=== PATIENT | male | born 1930 | race Caucasian/White ===

== ENCOUNTER 2018-01-28 08:23 | Emergency (ER) | payer OTHER ==
--- NOTE | 2018-01-28 09:01 | ED Physician Chart ---
ED Chief Complaint/HPI - Patient Information Date Seen:: 01/28/18 Time Seen:: 08:58 Chief Complaint:: psych disorder History of Present Illness:: this is an 87 yo male sent from the custodial for an evaluation and treatment of his behavior in the custodial. Allergies:: Allergies Allergy/AdvReac Type Severity Reaction Status Date / Time No Known Allergies Allergy Verified 01/28/18 08:42 Vitals:: Vital Signs - 8 hr 01/28/18 08:42 Temp 98.5 F HR 85 RR 18 BP 126/89 O2 Sat % 98 Historian:: Medical Records Review:: Nurse's Note Reviewed, Transfer documents Reviewed ED Review of Systems - Review of Systems General/Constitutional: Other (this patient is not cooperating to give a review of systems) ED Past Medical History - Past Medical History Obtainable: Yes Past Medical History: CAD, Dementia, Other (PNEUMONIA) Social History: Non Smoker, No Alcohol, No Drug Use, Care Facility, Other (BPH AND HEARING LOSS) Surgical History: Cholecystectomy, other (COLECTOMY, CATRACT SURGERY) Family Medical History - Family Member Mother History Unknown: Yes ED Physical Exam - Physical Examination Other Gen/Cons comments:: HARD OF HEARING VERY COMBATIVE AT TIMES Other ENMT comments:: BILATERAL HEARING LOSS. Other GI comments:: COLOSTOMY BAG, FUNCTION NORMALLY. Neuro/Psych: Mood normal (VERY AGGRESSIVE AND LOUD) ED Labs/Radiology/EKG Results - Lab Results Results: Abnormal Lab Results 01/28/18 01/28/18 09:21 09:21 WBC 5.7 RBC 4.64 Hgb 13.6 Hct 40.2 L MCV 86.6 MCH 29.2 MCHC Differential 33.7 RDW 13.4 Plt Count 227 MPV 7.4 Neutrophils % 76.5 Lymphocytes % 7.9 L Monocytes % 7.8 Eosinophils % 6.2 H Basophils % 1.6 Sodium 139 Potassium 4.1 Chloride 105 Carbon Dioxide 28.9 Anion Gap 9.2 BUN 15 Creatinine 1.2 Est GFR ( Amer) TNP Est GFR (Non-Af Amer) TNP BUN/Creatinine Ratio 12.5 Glucose 96 Calcium 9.4 Total Bilirubin 2.1 H AST 15 ALT 10 Alkaline Phosphatase 71 Total Protein 6.6 Albumin 3.8 L Globulin 2.8 Albumin/Globulin Ratio 1.4 - Radiology Results Results: CHEST X-RAY = NAD CT SCAN OF THE HEAD - EKG Interpretations EKG Time:: 09:23 Rate & Rhythm: RATE= 77, SINUS [place]: RIGHT AXIS Intervals: NO ECTOPY SEEN ED Assessment - Assessment General Assessment: psychosis ED Septic Shock - . Is Septic Shock (SBP<90, OR Lactate>4 mmol\L) present?: No - <6hrs of presentation: Vital Signs: Vital Signs - 8 hr 01/28/18 08:42 Temp 98.5 F HR 85 RR 18 BP 126/89 O2 Sat % 98 ED Reassessment (Disposition) - Diagnosis Diagnosis:: PSYCHOSIS - Patient Disposition Discharge/Transfer:: Acute Care (other hosp) ([facility]) Transport Method:: BLS Condition at Disposition:: Unchanged
[2018-01-28 09:27] LABS: HEMATOCRIT 40.2 % (41.0-60); HEMOGLOBIN 13.6 gm/dL (12-16); MEAN CELL VOLUME 86.6 fl (80-99); MEAN CORPUSCULAR HEMOGLOBIN 29.2 pg (27.0-31.0); MEAN CORPUSCULAR HGB CONC 33.7 pg (28.0-36.0); MEAN PLATELET VOLUME 7.4 fl; PLATELET COUNT 227 Th/cmm (150-400); RED BLOOD COUNT 4.64 Mil/cmm (3.80-5.80); RED CELL DISTRIBUTION WIDTH 13.4 % (11.5-20.0); WHITE BLOOD COUNT 5.7 Th/cmm (4.8-10.8)
--- NOTE | 2018-01-28 09:33 | Diagnostic Imaging Report ---
Exam: Chest x-ray HISTORY: Congestion. Findings: Frontal examination of chest upright reviewed the study demonstrates no acute pulmonic infiltrates or effusions. Mild atelectasis in the right base appreciated. COPD changes are noted. Mediastinal structures midline the heart is not enlarged. IMPRESSION: COPD changes. No acute disease.
[2018-01-28 09:44] LABS: ALB/GLOB RATIO 1.4 (1.0-1.8); ALBUMIN 3.8 gm/dL (4.2-5.5); ALKALINE PHOSPHATASE 71 U/L (34-104); ANION GAP 9.2 (7.0-16.0); BILIRUBIN,TOTAL 2.1 mg/dL (0.3-1.0); BUN - UREA NITROGEN 15 mg/dL (7-25); CALCIUM SERUM 9.4 mg/dL (8.6-10.3); CARBON DIOXIDE 28.9 mEq/L (21.0-31.0); CHLORIDE 105 mEq/L (98-107); CREATININE - SERUM 1.2 mg/dL (0.7-1.3); GLUCOSE 96 mg/dL (70-105); POTASSIUM SERUM 4.1 mEq/L (3.5-5.1); SGOT 15 U/L (13-39); SGPT/ALT 10 U/L (7-52); SODIUM SERUM 139 mEq/L (136-145); TOTAL PROTEIN,SERUM 6.6 gm/dL (6.0-8.3)
[2018-01-28 09:48] LABS: INR 0.95 (0.5-1.4); PROTHROMBIN TIME (TEST) 9.9 SECONDS (9.5-11.5)
--- NOTE | 2018-01-28 09:50 | Diagnostic Imaging Report ---
CT scan of the brain without intravenous contrast HISTORY: Stroke Total DLP equals 672 CTDI equals 36.1 Axial sections were obtained from the base of the skull to the vertex. There is prominence/enlargement of the ventricular system size. Associated enlargement of cerebral sulci and subarachnoid cisterns. Findings are consistent with changes of generalized cerebral atrophy. No acute parenchymal abnormalities. No acute cerebral hemorrhage. Chronic vascular calcifications appreciated. Hypodensity is seen within the supratentorial white matter regions without mass effect. The findings may be associated with chronic small vessel ischemic disease. There is a small lacunar infarct in right basal ganglia. There is evidence for a small infarct in the left frontal lobe No extra-axial masses or abnormal fluid collections. There is evidence for deviation of nasal septum. IMPRESSION: 1. Old lacunar infarct right basal ganglia, small lacunar infarct left frontal lobe 2. Cerebral atrophy 3. Supratentorial white matter changes that may reflect chronic small vessel ischemic disease
[2018-01-28 10:11] LABS: BAND NEUTROPHILE 2 % (0-10); LYMPHOCYTE 10 % (20-50); NEUTROPHILS 80 % (40-80)
[2018-01-28 10:12] LABS: EOSINOPHIL 3 % (0-5); MONOCYTE 5 % (2-10); PLATELET ESTIMATE ADEQUATE (NORMAL)
[2018-01-28 10:31] LABS: URINE SOURCE CLEAN C
[2018-01-28 10:35] LABS: URINE BILIRUBIN NEGATIVE (NEGATIVE); URINE BLOOD NEGATIVE (NEGATIVE); URINE GLUCOSE (UA) NEGATIVE (NEGATIVE); URINE KETONE NEGATIVE (NEGATIVE); URINE LEUKOCYTE ESTERASE NEGATIVE (NEGATIVE); URINE NITRATE NEGATIVE (NEGATIVE); URINE PROTEIN NEGATIVE (NEGATIVE); URINE UROBILINOGEN 0.2 E.U./dL (0.2 - 1.0)
[2018-01-28 10:48] LABS: URINE CLARITY CLEAR (CLEAR); URINE COLOR YELLOW
[2018-01-28 10:49] LABS: URINE MICROSCOPIC INDICATED? YES
[2018-01-28 10:50] LABS: URINE BACTERIA FEW /hpf (NONE SEEN); URINE EPITHELIAL CELLS NONE SEEN /lpf (FEW); URINE RBC NONE SEEN /hpf (0-5); URINE WBC 0-2 /hpf (0-5)
[2018-01-28 10:51] LABS: AMPHETAMINE URINE NEGATIVE (NEGATIVE); BARBITURATES URINE NEGATIVE (NEGATIVE); BENZODIAZEPINES QUAL URINE NEGATIVE (NEGATIVE); CANNABINOID THC NEGATIVE (NEGATIVE); COCAINE METABOLITE QUAL URINE NEGATIVE (NEGATIVE); METHADONE URINE NEGATIVE (NEGATIVE); METHAMPHETAMINES QUAL URINE NEGATIVE (NEGATIVE); OPIATES (MORPHINE) QUAL. URINE NEGATIVE (NEGATIVE); PHENCYCLIDINE (PCP) URINE NEGATIVE (NEGATIVE); TRICYCLICS (TCA) QUAL. URINE NEGATIVE (NEGATIVE)
== END 2018-01-28 23:40 | disposition short-term general hospital (02) ==
LOC: ER 08:23
DX: F29 Unspecified psychosis not due to a substance or known physiological condition (principal); H91.93 Unspecified hearing loss, bilateral; I25.10 Atherosclerotic heart disease of native coronary artery without angina pectoris; Z90.49 Acquired absence of other specified parts of digestive tract
CPT/HCPCS: 99285; 93005; 71045; 70450; 84484; 36415; 80307; 84443; 85007; 85025; 85610; 85730; 81001; 80329 ×2; 80320; 80053; A4366; Z7610